=== PATIENT | male | born 1990 | race African-American/Black ===

== ENCOUNTER 2019-04-13 19:26 | Emergency (ER) | payer SELFPAY ==
[~2019-04-13] VITALS: Ht 182.9 cm; Wt 98.0 kg
[2019-04-13] MEDS ORDERED: SODIUM CHLORIDE 0.9% 1,000 ML IV ONE (19:57)
[2019-04-13] MEDS ORDERED: ONDANSETRON HCL 4MG/2ML INJ IV STA (19:57)
[2019-04-13] MEDS ORDERED: LORAZEPAM 2MG/ML CPJ IV STA (19:57)
[2019-04-13 20:16] LABS: BASOPHILS % 0.3 % (0.0-2.0); HEMATOCRIT. 46.1 % (42.0-52.0); HEMOGLOBIN. 15.6 g/dL (14.0-18.0); LYMPHOCYTES % 9.6 % (20.0-50.0); MEAN CORPUSCULAR HEMOGLOBIN 32.6 pg (28.0-32.0); MEAN PLATELET VOLUME 10.3 fl (7.4-10.4); MONOCYTES % 5.6 % (2.0-8.0); NEUTROPHILS % 84.5 % (40.0-76.0); PLATELET 242 x1000/uL (130-400); RED BLOOD CELL COUNT 4.79 mill/uL (4.7-6.1); RED CELL DISTRIBUTION WIDTH 12.8 % (11.6-14.6)
[2019-04-13 21:25] LABS: CHLORIDE 102 mEq/L (98-107)
[2019-04-13 21:36] LABS: CREATINE KINASE 468 IU/L (39-308)
[2019-04-13 21:37] LABS: ETHANOL BLOOD < 10 mg/dL
[2019-04-13 23:42] LABS: CLARITY URINE CLEAR (CLEAR); COLOR URINE YELLOW (YELLOW); KETONES URINE 1+ (NEGATIVE); LEUKOCYTE ESTERASE URINE NEGATIVE (NEGATIVE); NITRITE URINE NEGATIVE (NEGATIVE); OCCULT BLOOD URINE NEGATIVE (NEGATIVE); PH URINE 8.5 (4.5-8.0); PROTEIN URINE NEGATIVE (NEGATIVE); UROBILINOGEN URINE 0.2 E.U./dL (0.2-1.0)
[2019-04-13] MEDS ORDERED: ONDANSETRON HCL 4MG/2ML INJ IV ONE (23:45)
[2019-04-14 00:07] LABS: *AMPHETAMINES SCREEN URINE PRESUMTIVE POSITIVE (NEGATIVE); *BARBITURATES SCREEN URINE NEGATIVE (NEGATIVE); *BENZODIAZEPINES SCREEN URINE NEGATIVE (NEGATIVE); *COCAINE SCREEN URINE PRESUMTIVE POSITIVE (NEGATIVE)
[2019-04-14 00:08] LABS: CANNABINOID URINE SCREEN NEGATIVE (NEGATIVE); METHADONE URINE SCREEN NEGATIVE (NEGATIVE); OPIATES URINE SCREEN NEGATIVE (NEGATIVE); PHENCYCLIDINE URINE SCREEN NEGATIVE (NEGATIVE)
[2019-04-14 02:57] VITALS: BP 128/74
== END 2019-04-14 03:46 | disposition home or self-care (01) ==
LOC: ER 19:26
DX: T43.641A Poisoning by ecstasy, accidental (unintentional), initial encounter (principal); G92 Toxic encephalopathy; F16.129 Hallucinogen abuse with intoxication, unspecified; Y92.89 Other specified places as the place of occurrence of the external cause
CPT/HCPCS: 36415; 70450; 80053; 80305; 80307; 80320; 80329; 81003; 82140; 82550; 84443; 85025; 93005; 96361; 96374; 96375; 96376; 99284; J2060; J2405; J7030; G0480